=== PATIENT | female | born 1965 | race Caucasian/White ===

== ENCOUNTER 2023-09-30 08:23 | Day surgery (SDC) | payer OTHER ==
[~2023-09-30] VITALS: Ht 160 cm; Wt 79.4 kg
[2023-09-30 09:20] VITALS: O2SAT 98
[2023-09-30] MEDS ORDERED: MEPERIDINE 100 MG INJ. 100 MG/ML VIAL ONE (09:40)
[2023-09-30] MEDS ORDERED: MIDAZOLAM HCL 5 MG/5 ML VIAL ONE (09:40)
[2023-09-30 14:49] VITALS: BP_SYST 120; PULSE 57; RESP 14
== END 2023-09-30 11:40 | disposition home or self-care (01) ==
LOC: SDS 08:23 → SMU 08:25 → SDS 11:40
PROVIDERS: ATTEND Student in an Organized Health Care Education/Training Program
DX: K59.09 Other constipation (principal); K57.30 Diverticulosis of large intestine without perforation or abscess without bleeding; K64.8 Other hemorrhoids; M53.3 Sacrococcygeal disorders, not elsewhere classified; K21.9 Gastro-esophageal reflux disease without esophagitis; F41.9 Anxiety disorder, unspecified; F32.A Depression, unspecified; J45.909 Unspecified asthma, uncomplicated; Z90.49 Acquired absence of other specified parts of digestive tract; Z90.710 Acquired absence of both cervix and uterus; Z88.0 Allergy status to penicillin
CPT/HCPCS: 45378; 99152; G0378; J2250; J2175